=== PATIENT | male | born 1990 | race Caucasian/White ===

== ENCOUNTER 2024-01-05 04:43 | Emergency (ER) | payer MEDICAID ==
[~2024-01-05] VITALS: Ht 177.8 cm; Wt 86.4 kg
[2024-01-05] MEDS ORDERED: CEPH-585 PO (05:23)
[2024-01-05] MEDS: cephalexin 500mg capsule PO ONE (05:28)
[2024-01-05 05:35] VITALS: BP 144/78; PULSE 109; RESP 18; TEMP 98.9; O2SAT 99
== END 2024-01-05 05:36 | disposition home or self-care (01) ==
LOC: ER 04:44
DX: L03.116 Cellulitis of left lower limb (principal); L02.416 Cutaneous abscess of left lower limb
CPT/HCPCS: 99283

== ENCOUNTER 2024-08-21 04:32 | Emergency (ER) | payer MEDICAID ==
[~2024-08-21] VITALS: Ht 177.8 cm; Wt 78.0 kg
[2024-08-21 04:35] VITALS: BP 141/100; RESP 16
[2024-08-21 04:44] VITALS: PULSE 112; O2SAT 99
[2024-08-21] MEDS ORDERED: SULF1TAB49 PO (05:13)
--- NOTE | 2024-08-21 05:13 | Physician Documentation ---
History of Present Illness ~ Chief Complaint: Nose Pain Stated Complaint: NOSE PAIN Time Seen by MD: 05:10 Source: patient Mode of Arrival: POV Exam Limitations: no limitations HPI Chief Complaint: Nose pain Caveat: None Independent Historians: None History of Present Illness: Patient is a 34-year-old man who woke up this morni ng with the tip of his nose painful, red and swollen. Patient believes she has an infection. Patient denies any fevers. Pain is constant and worse with touch. Review of systems: All systems were reviewed and are negative except for what is indicated in the history of present illness. Past Medical History: None Past Surgical History: None Social History: Tobacco use, alcohol use, crystal meth use Medications: Reviewed as documented Nursing Notes Allergies: Reviewed as documented in Nursing Notes Medication Reconciliation Allergies: Coded Allergies: No Known Allergies (Unverified , 08/21/24) Scheduled Sulfamethoxazole/Trimethoprim (Bactrim Ds Tablet), 1 EACH PO BID Review of Systems All Other Systems at this time: Reviewed and Negative ROS Patient denies any other acute symptoms other than above. All other systems are negative Physical Exam Vital Signs: RN Vital Signs have been reviewed: Yes, Temperature: 98.1, Source: Oral, Heart Rate: 112, Respiratory Rate: 16, BP: 141/100, Pulse Oximetry: 99, Weight: 78.000 Oxygen Flow Rate: 0 Pulse Oximetry Reflects: adequate oxygenation Physical Exam General Appearance: Mild distress HEENT: Normal OP, moist oral mucosa, PERRL, EOMI, the tip of the nose is erythematous and very tender to light touch. There is a small pustule on the inside of the left septum. Right septum appears normal. Septum does appear erythematous. Neck: supple, normal ROM, trachea midline Pulmonary: No respiratory distress, CTA, BS equal Cardiac: RRR, no murmur, rub or gallop, Skin: intact, dry, warm, no rashes, see HEENT exam above Neuro: AAOx3, speech is clear, no focal motor weakness Psych: normal affect, good eye contact, no apparent hallucination, normal speech Progress Results/Orders Results/Orders Completed Orders - YARIEL SEAY MD Sulfamethox/Trimetho. Ds Tab (Septra Ds (08/21/24 05:10) Vital Signs 08/21/24 08/21/24 04:35 04:44 Temp 98.1 98.1 Pulse 110 112 Resp 16 B/P (MAP) 141/100 Pulse Ox 99 99 O2 Flow Rate 0 0 Medical Decision Making Findings Differential diagnosis includes but is not limited to: Abscess, cellulitis, MRSA Emergency department course/medical decision-making: Patient presents with severe pain to the tip of the nose and on the inside of the nose. Patient has a soft tissue infection that is likely MRSA. Patient is started on Bactrim here and given a prescription for Bactrim. The nares was not cultured. Again this is likely MRSA and will be treated as such. Patient is instructed to return if symptoms worsen. He is instructed to complete the 10 day course of antibiotics. Patient is stable for discharge. Departure Time of Disposition: 05:11 Disposition: 01 HOME / SELF CARE / HOMELESS Impression: Primary Impression: Infection of nose Condition: Stable Discharge Instructions: MRSA Infection, Diagnosis, Adult Additional Instructions: THIS IS HIGHLY LIKELY A STAPH INFECTION. TAKE THE ANTIBIOTICS DIRECTED FOR 10 DAYS. RETURN IF SYMPTOMS WORSEN. THIS WILL TAKE SEVERAL DAYS BEFORE IT STARTS TO GET BETTER. Prescriptions Sulfamethoxazole/Trimethoprim (Bactrim Ds Tablet) 800 Mg-160 Mg Tablet 1 EACH PO BID, #20 TAB Prov: YARIEL SEAY MD 08/21/24 Education Educated: Patient Educated regarding: diagnosis, treatment Signature Scribe Signature: No scribe Attestation: No scribe YARIEL SEAY MD Aug 21, 2024 05:13
[2024-08-21] MEDS: sulfamethoxazole/trimethoprim DS (800/160mg) tablet PO ONE (05:24)
[2024-08-21] MEDS: ketorolac trometh 15mg/ml vial 15 MG/ML ML IM ONE (05:32)
[2024-08-21 05:40] VITALS: TEMP 98.1
== END 2024-08-21 05:41 | disposition home or self-care (01) ==
LOC: ER 04:32
DX: B99.8 Other infectious disease (principal); J34.89 Other specified disorders of nose and nasal sinuses
CPT/HCPCS: 96372; 99283; J1885

== ENCOUNTER 2024-08-24 05:40 | Emergency (ER) | payer MEDICAID ==
[~2024-08-24] VITALS: Ht 177.8 cm; Wt 78.0 kg
[~2024-08-24 05:40] MED LIST: SULF1TAB49 PO
[2024-08-24 05:43] VITALS: BP 140/95; PULSE 101; RESP 14; TEMP 97.6; O2SAT 96
== END 2024-08-24 07:05 | disposition left against medical advice (07) ==
LOC: ER 05:41
DX: J34.0 Abscess, furuncle and carbuncle of nose (principal); Z53.21 Procedure and treatment not carried out due to patient leaving prior to being seen by health care provider